=== PATIENT | female | born 1990 | race Caucasian/White ===

== ENCOUNTER 2020-12-25 18:11 | Inpatient (IN) | payer MEDICAID ==
[~2020-12-25] VITALS: Ht 170.2 cm; Wt 93.0 kg
[2020-12-25] MEDS ORDERED: diphenhydrAMINE HCL 50 MG/ML VIAL ONE (20:44)
[2020-12-25] MEDS ORDERED: LIDOCAINE VISCOUS 2% UD 15 ML UDC ONE (20:44)
[2020-12-25] MEDS ORDERED: FAMOTIDINE/PF INJ 20 MG/2 ML VIAL IV ONE ×2 (20:44→21:00)
[2020-12-25] MEDS ORDERED: MAG HYDROX/AL HYDROX/SIMETH 30 ML UDC ONE (20:44)
[2020-12-25] MEDS ORDERED: IV NS 0.9% 1,000 ML BAG IV ONE ×2 (21:00→22:30)
[2020-12-25] MEDS ORDERED: LIDOCAINE VISCOUS 2% UD 15 ML UDC MM ONE (21:00)
[2020-12-25] MEDS ORDERED: MAG HYDROX/AL HYDROX/SIMETH 30 ML UDC PO ONE (21:00)
[2020-12-25] MEDS ORDERED: diphenhydrAMINE HCL 50 MG/ML VIAL IV ONE (21:00)
--- NOTE | 2020-12-25 21:00 | NUR ---
epigastric pain w/ nausea x today. 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
--- NOTE | 2020-12-25 21:03 | NUR ---
URINE AND BLOOD SAMPLE WAS TURNED IN TO THE LAB
[2020-12-25 21:06] LABS: BASOPHILS % (AUTO) 0.3 % (0.0-2.0); HEMATOCRIT 39 % (33-45); HEMOGLOBIN 12.5 g/dL (11.5-14.8); LYMPHOCYTES # (AUTO) 0.6 /CMM (0.8-4.8); LYMPHOCYTES % (AUTO) 4.2 % (20.0-44.0); MEAN CORPUSCULAR HGB CONC 32 g/dl (31.0-36.0); MEAN CORPUSCULAR VOLUME 84 fL (82-100); MONOCYTES # (AUTO) 0.6 /CMM (0.1-1.30); MONOCYTES % (AUTO) 4.6 % (2.0-12.0); NEUTROPHILS # (AUTO) 12.2 /CMM (1.8-8.9); NEUTROPHILS % (AUTO) 90.9 % (43.0-81.0); PLATELET COUNT (AUTO) 309 /CMM (150-450); RED BLOOD CELL COUNT(AUTO) 4.63 MIL/uL (4.0-5.2); WHITE BLOOD COUNT (AUTO) 13.4 K/uL (4.3-11.0)
[2020-12-25 21:43] LABS: CALCIUM, SERUM 9.6 mg/dL (8.5-10.1); CREATININE 0.8 mg/dL (0.6-1.3); POTASSIUM 3.6 mmol/L (3.5-5.1)
[2020-12-25 21:49] LABS: ALBUMIN 3.5 g/dL (3.4-5.0); BILIRUBIN,DIRECT 3.2 mg/dL (0.0-0.2); BILIRUBIN,TOTAL 4.1 mg/dL (0.2-1.0); TOTAL PROTEIN, SERUM 7.9 g/dL (6.4-8.2)
[2020-12-25 22:07] LABS: BILIRUBIN,URINE LARGE (NEGATIVE); COLOR,URINE DARK YELLOW (YELLOW); LEUKOCYTE ESTERASE ,URINE Negative (NEGATIVE); NITRITE, URINE Negative (NEGATIVE); PH,URINE 5.5 (5.0-8.0); PROTEIN,URINE 30 mg/dl (NEGATIVE); UGLUCOSE Negative (NEGATIVE); UROBILINOGEN,URINE 0.2 EU/dL (0.2)
[2020-12-25 22:09] LABS: BACTERIA,URINE Few /HPF (None Seen); SQUAMOUS EPITHELIAL CELL,UR Few /HPF (None Seen); WBC,URINE 0-2 /HPF (0-3)
--- NOTE | 2020-12-25 22:52 | NUR ---
CALLED FOR COVID SWAB
[2020-12-25 22:53] LABS: ALCOHOL, BLOOD < 3 mg/dL (0-0)
[2020-12-25 22:58] LABS: CHOLESTEROL 227 mg/dL (<200); HDL CHOLESTEROL 57 mg/dL (40-60); LDL 127 mg/dL (0-99); TRIGLYCERIDES 70 mg/dL (30-150)
[2020-12-25] MEDS ORDERED: ONDANSETRON HCL/PF 4 MG/2 ML VIAL IVP ONE (23:00)
[2020-12-25] MEDS ORDERED: MORPHINE SULFATE INJ 2 MG/ML DISP.SYRIN IV ONE (23:00)
--- NOTE | 2020-12-25 23:53 | NUR ---
LAB CALLED REGARDING NEGATIVE COVID RESULT.
[2020-12-26] MEDS ORDERED: ONDANSETRON HCL/PF 4 MG/2 ML VIAL IVP PRN
[2020-12-26] MEDS ORDERED: MAGNESIUM HYDROXIDE 30 ML UDC PO PRN
[2020-12-26] MEDS ORDERED: MAG HYDROX/AL HYDROX/SIMETH 30 ML UDC PO PRN
[2020-12-26] MEDS ORDERED: Z GUARD REMEDY 2 OZ OINT TP PRN
[2020-12-26] MEDS ORDERED: ACETAMINOPHEN 325 MG TABLET PO PRN
[2020-12-26] MEDS ORDERED: ZOLPIDEM TARTRATE 5 MG TABLET PO PRN
--- NOTE | 2020-12-26 00:21 | NUR ---
Patient is resting comfortably in bed with eyes closed. Easily aroused. VSS
[2020-12-26] MEDS ORDERED: MORPHINE SULFATE INJ 4 MG/ML DISP.SYRIN ONE (01:05)
[2020-12-26] MEDS: IV NS 0.9% 1,000 ML IV SCH ×3 (01:06→19:49)
[2020-12-26 04:43] LABS: BASOPHILS % (AUTO) 0.3 % (0.0-2.0); EOSINOPHILS % (AUTO) 0.1 % (0.0-6.0); HEMATOCRIT 37 % (33-45); LYMPHOCYTES # (AUTO) 0.7 /CMM (0.8-4.8); LYMPHOCYTES % (AUTO) 7.1 % (20.0-44.0); MEAN CORPUSCULAR HGB CONC 33 g/dl (31.0-36.0); MEAN CORPUSCULAR VOLUME 84 fL (82-100); MONOCYTES # (AUTO) 0.7 /CMM (0.1-1.30); MONOCYTES % (AUTO) 6.9 % (2.0-12.0); NEUTROPHILS # (AUTO) 8.8 /CMM (1.8-8.9); NEUTROPHILS % (AUTO) 85.6 % (43.0-81.0); PLATELET COUNT (AUTO) 267 /CMM (150-450); RED BLOOD CELL COUNT(AUTO) 4.37 MIL/uL (4.0-5.2); WHITE BLOOD COUNT (AUTO) 10.3 K/uL (4.3-11.0)
[2020-12-26 05:03] LABS: CALCIUM, SERUM 8.9 mg/dL (8.5-10.1); CREATININE 0.8 mg/dL (0.6-1.3); MAGNESIUM 1.7 mg/dL (1.8-2.4); PHOSPHORUS 3.4 mg/dL (2.5-4.9); POTASSIUM 3.6 mmol/L (3.5-5.1)
[2020-12-26] MEDS ORDERED: FAMO40TA7 PO (07:02)
--- NOTE | 2020-12-26 07:30 | NUR ---
RECEIVED REPORT FROM ROBERTO WINTER FOR [facility]O. PT IS AAOX4, NOT IN RESPIRATORY DISTRESS, V/S STABLE, KEPT RESTED AND COMFORTABLE. WILL CONTINUE TO MONITOR.
[2020-12-26 08:00] VITALS: BP 134/79
--- NOTE | 2020-12-26 08:00 | NUR ---
REPORT GIVEN TO ROBERTO HOWE FOR [facility]O.
[2020-12-26] MEDS: Magnesium 1GM/D5W 100ML PREMIX 100 ML IV SCH ×2 (10:31→11:40)
--- NOTE | 2020-12-26 11:28 | NUR ---
MS RN ADMITTING NOTES PT ADMITTED FROM [facility] AT 0830 VIA GURNEY ACCOMPANIED BY Allie RN AXLE. PT IS A/O X4. ABLE TO MAKE NEEDS KNOWN, VERBALIZED THAT HER ABDOMINAL PAIN IS TOLERABLE AT THIS TIME. PT WITH DX OF GALLSTONE PANCREATITIS. PT ORIENTED TO STAFF AND ROOM. V/S TAKEN AND RECORDED. ON ROOM AIR, TOLERATING WELL WITH NO SOB NOTED. PT IS AMBULATORY WITH STEADY GAIT. IV ACCESS NOTED ON LAC g#18 WITH IVF OF NS @ 100 ML/HR INFUSING, NO S/S OF INFILTRATIONS NOTED. SAFETY MEASURES INITIATED: BED PLACED IN LOWEST LOCKED POSITION WITH SR UP X2. CALL LIGHT W/I EASY REACH OF PT. WILL CONTINUE TO MONITOR PT ACCORDINGLY.
[2020-12-26 16:00] VITALS: BP 136/88
[2020-12-26] MEDS: MORPHINE SULFATE INJ 2 MG/ML DISP.SYRIN IV PRN (18:49)
--- NOTE | 2020-12-26 18:53 | NUR ---
RN NOTES PT C/O SHARP UPPER ABDOMINAL PAIN, 8/10 SCALE. PRN MORPHINE 2MG/ML IVP ADMINISTERED AT 1849. WILL CONTINUE TO MONITOR AND REASSESS PT.
--- NOTE | 2020-12-26 18:59 | NUR ---
MS RN CLOSING NOTES PT AWAKE AND RESTING IN BED AT MODERATE HIGH BACKREST POSITION AT THIS TIME. A/O X4. ABLE TO MAKE NEEDS KNOWN. ON ROOM AIR, TOLERATING WELL WITH NO SOB NOTED. PT FOR LAP CHOLECYSTECTOMY POSSIBLE OPEN TOMORROW BY DR JULIO, NPO MAINTAINED, ALL CONSENTS SIGNED. IV ON LAC g#18 INTACT AND PATENT, IVF OF NS @ 100 ML/HR INFUSING WELL, NO S/S OF INFILTRATIONS NOTED. ALL NEEDS AND CARE ATTENDED WELL. SAFETY MEASURES IN PLACE: BED IN LOWEST LOCKED POSITION WITH SR UP X2. CALL LIGHT W/I EASY REACH OF PT. WILL ENDORSE TO STRIPPING SHOVEL OILER NURSE FOR BAO.
[2020-12-26 19:15] LABS: CALCIUM, SERUM 9.2 mg/dL (8.5-10.1); CREATININE 0.7 mg/dL (0.6-1.3); POTASSIUM 3.2 mmol/L (3.5-5.1)
[2020-12-26 19:21] LABS: ALBUMIN 2.9 g/dL (3.4-5.0); BILIRUBIN,TOTAL 4.8 mg/dL (0.2-1.0); TOTAL PROTEIN, SERUM 6.9 g/dL (6.4-8.2)
--- NOTE | 2020-12-26 19:30 | NUR ---
RN opening notes Pt is resting in bed comfortably. Pt is alert and orientedX4. Respiration on room air. No SOB. No S/S of distress noted. IV site at LAC# 18 is clean, intact and infusing well NS@ 100 ml/hr. Pt status is NPO for procedure lap cholecystectomy tomorrow. Safety precautions is maintained. Bed at low position, brakes locked, side rails upX2 and call light is within reach. Will continue to monitor.
[2020-12-26 20:00] VITALS: BP 131/71
[2020-12-26 21:10] VITALS: BP 131/71
--- NOTE | 2020-12-26 21:40 | NUR ---
RN notes Informed and notified MD regarding Pt's potassium is 3.2 . MD ordered IV KCL 10 meq x 2 bags. Order carried out.
[2020-12-26] MEDS ORDERED: POTASSIUM CHLORIDE 10 MEQ/50 ML PREMIXED IVPB FOR PERIPHERAL LINE IV ONE (22:00)
[2020-12-26] MEDS: POTASSIUM CHLORIDE 10 MEQ/50 ML PREMIXED IVPB FOR PERIPHERAL LINE IV SCH ×2 (22:06→23:25)
[2020-12-27] MEDS: IV NS 0.9% 1,000 ML IV SCH ×2 (05:01→16:16)
[2020-12-27 06:29] LABS: BASOPHILS % (AUTO) 0.4 % (0.0-2.0); EOSINOPHILS % (AUTO) 1.4 % (0.0-6.0); HEMATOCRIT 36 % (33-45); HEMOGLOBIN 11.9 g/dL (11.5-14.8); LYMPHOCYTES # (AUTO) 0.7 /CMM (0.8-4.8); LYMPHOCYTES % (AUTO) 9.7 % (20.0-44.0); MEAN CORPUSCULAR HGB CONC 33 g/dl (31.0-36.0); MEAN CORPUSCULAR VOLUME 83 fL (82-100); MONOCYTES # (AUTO) 0.5 /CMM (0.1-1.30); MONOCYTES % (AUTO) 6.3 % (2.0-12.0); NEUTROPHILS # (AUTO) 6.3 /CMM (1.8-8.9); NEUTROPHILS % (AUTO) 82.2 % (43.0-81.0); PLATELET COUNT (AUTO) 238 /CMM (150-450); RED BLOOD CELL COUNT(AUTO) 4.33 MIL/uL (4.0-5.2); WHITE BLOOD COUNT (AUTO) 7.7 K/uL (4.3-11.0)
--- NOTE | 2020-12-27 06:46 | NUR ---
RN closing notes Pt is resting in bed comfortably. Pt is alert and orientedX4. Respiration is normal on room air. No SOB. No S/S of distress noted. IV site at LAC# 18 is clean, intact and infusing well NS@ 100 ml/hr. VS is stable. Afebrile. Pt status is NPO for procedure laparoscopic cholecystectomy today. Consent is done. Check list is done. Safety precautions is maintained. Bed at low position, brakes locked, side rails upX2 and call light is within reach. Will endorse to morning nurse for BAO.
[2020-12-27 07:15] LABS: ALBUMIN 2.7 g/dL (3.4-5.0); BILIRUBIN,TOTAL 3.4 mg/dL (0.2-1.0); CALCIUM, SERUM 9.3 mg/dL (8.5-10.1); CREATININE 0.6 mg/dL (0.6-1.3); PHOSPHORUS 2.6 mg/dL (2.5-4.9); POTASSIUM 3.7 mmol/L (3.5-5.1); TOTAL PROTEIN, SERUM 6.8 g/dL (6.4-8.2)
--- NOTE | 2020-12-27 07:20 | NUR ---
ms rn received on bed, awake,alert,oriented x4,not in any form of distress, respirations even and unlabored,no sob noted
[2020-12-27 08:00] VITALS: BP 132/63
--- NOTE | 2020-12-27 08:00 | NUR ---
ms rn on npo at this time, for surgery today.
[2020-12-27] MEDS ORDERED: ANESTHESIA TRAY IN PYXIS 1 EA TRAY MC ONE (08:34)
[2020-12-27] MEDS ORDERED: BUPIVACAINE MPF W/EPI 0.25% 30 ML VIAL ONE (08:36)
[2020-12-27] MEDS ORDERED: FENTANYL PF 100MCG/2ML AMPUL ONE ×2 (09:53→11:38)
[2020-12-27] MEDS ORDERED: MIDAZOLAM HCL 2 MG/2ML VIAL ONE (09:53)
[2020-12-27] MEDS ORDERED: SUCCINYLCHOLINE CHLORIDE 20 MG/ML VIAL ONE (09:54)
[2020-12-27] MEDS ORDERED: ROCURONIUM BROMIDE 50 MG/5 ML ONE (09:54)
--- NOTE | 2020-12-27 10:00 | NUR ---
MS RN PATIENT WENT DOWN FOR SURGERY,ALL NEEDS ATTENDED.
--- NOTE | 2020-12-27 14:00 | NUR ---
MS RN PATIENT CAME BACK FROM SURGERY, AWAKE,ALERT,ORIENTED, DENIES PAIN AT THIS TIME, SX SITE DRY W/ NO BLEEDING, LUIS F DRAIN INTACT, WILL MONITOR PATIENT.
[2020-12-27 16:00] VITALS: BP 123/69
[2020-12-27] MEDS: MORPHINE SULFATE INJ 2 MG/ML DISP.SYRIN IV PRN (16:09)
--- NOTE | 2020-12-27 19:00 | NUR ---
ms rn on bed, no distress noted.
--- NOTE | 2020-12-27 19:15 | NUR ---
MS RN OPENING NOTES: RECEIVED PATIENT IN BED AWAKE, ALERT AND ORIENTED X4. NO S/SX OF ACUTE DISTRESS NOTED. DENIES PAIN OR DISCOMFORT AT THIS TIME. IV ACCESS ON LAC #18 G PATENT, INTACT AND FLUSHES WELL. IV FLUIDS NS RUNNING @100ML/HR. SAFETY MEASURES IN PLACE. BED IN LOCKED AND IN LOWEST POSITION. SIDE RAILS UP X2. CALL LIGHT WITHIN REACH. WILL CONTINUE TO MONITOR FOR PATIENT'S SAFETY
[2020-12-27 20:00] VITALS: BP 123/77
[2020-12-28] MEDS: IV NS 0.9% 1,000 ML IV SCH ×2 (02:27→12:42)
--- NOTE | 2020-12-28 06:47 | NUR ---
MS RN CLOSING NOTES: PATIENT IN BED ASLEEP, AROUSES EASILY. NO S/SX OF ACUTE DISTRESS NOTED. DENIES PAIN OR DISCOMFORT AT THIS TIME. IV ACCESS ON LAC #18 G PATENT, INTACT AND FLUSHES WELL. IV FLUIDS NS RUNNING @100ML/HR. LUIS F DRAIN, EMPTIED AND RECORDED. SAFETY MEASURES IN PLACE. BED LOCKED AND IN LOWEST POSITION. SIDE RAILS UP X2. CALL LIGHT WITHIN REACH. WILL ENDORSE TO ONCOMING RN.
--- NOTE | 2020-12-28 07:00 | NUR ---
RN OPENING NOTES PT IS A/O X3 AND TRISTANIAN SPEAKING. PT IS ON RA WITH SOB OR RESPIRATORY DISTRESS PRESENT. PT VS STABLE. PT IS AMBULATORY WITH BATHROOM PRIVILEGES. RASH PRESENT ON UPPER BACK. LUIS F DRAIN PRESENT ON THE RIGHT ABDOMEN. DRAINS WITH LIGHT RED LIQUID. HL PRESENT IN LEFT AC AND FLUSHES WELL. SAFETY MEASURES IMPLEMENTED. SIDE RAILS RAISED. BED LOWERED. CALL LIGHT WITHIN REACH. WILL CONTINUE TO MONITOR.
[2020-12-28 07:03] LABS: BASOPHILS % (AUTO) 0.1 % (0.0-2.0); EOSINOPHILS % (AUTO) 0.4 % (0.0-6.0); HEMATOCRIT 35 % (33-45); HEMOGLOBIN 11.4 g/dL (11.5-14.8); LYMPHOCYTES # (AUTO) 1.1 /CMM (0.8-4.8); LYMPHOCYTES % (AUTO) 12.3 % (20.0-44.0); MEAN CORPUSCULAR HGB CONC 33 g/dl (31.0-36.0); MEAN CORPUSCULAR VOLUME 84 fL (82-100); MONOCYTES # (AUTO) 0.7 /CMM (0.1-1.30); MONOCYTES % (AUTO) 7.7 % (2.0-12.0); NEUTROPHILS # (AUTO) 7.1 /CMM (1.8-8.9); NEUTROPHILS % (AUTO) 79.5 % (43.0-81.0); PLATELET COUNT (AUTO) 275 /CMM (150-450); RED BLOOD CELL COUNT(AUTO) 4.12 MIL/uL (4.0-5.2)
[2020-12-28 07:12] LABS: ALBUMIN 2.5 g/dL (3.4-5.0); BILIRUBIN,TOTAL 1.9 mg/dL (0.2-1.0); CREATININE 0.7 mg/dL (0.6-1.3); MAGNESIUM 1.9 mg/dL (1.8-2.4); PHOSPHORUS 2.5 mg/dL (2.5-4.9); POTASSIUM 3.7 mmol/L (3.5-5.1); TOTAL PROTEIN, SERUM 6.6 g/dL (6.4-8.2)
[2020-12-28 08:00] VITALS: BP 117/50
[2020-12-28 16:00] VITALS: BP 106/67
[2020-12-28] MEDS: HYDROCODONE/APAP 5/325MG TABLET PO PRN (16:17)
--- NOTE | 2020-12-28 18:24 | NUR ---
RN CLOSING NOTE PT IS A/O X3 AND ICELANDIC SPEAKING. PT IS ON RA WITH NO SOB OR RESPIRATORY DISTRESS PRESENT. PT V/S STABLE. PT IS AMBULATORY WITH BATHROOM PRIVILEGES. RASH PRESENT ON UPPER BACK. LUIS F DRAIN PRESENT ON THE RIGHT ABDOMEN. DRAINED 50 ML OF LIGHT RED FLUID. HL PRESENT IN LEFT AC AND FLUSHES WELL. SAFETY MEASURES IMPLEMENTED. SIDE RAILS RAISED. BED LOWERED. CALL LIGHT WITHIN REACH. ROUTINE MEDS GIVEN. REPORT GIVEN TO NIGHT NURSE.
[2020-12-28 20:00] VITALS: BP 126/83
--- NOTE | 2020-12-29 04:04 | NUR ---
Received pt on heplock, IVF was not running. Resumed IVF on the beginning of the shift at 1930.
[2020-12-29] MEDS: HYDROCODONE/APAP 5/325MG TABLET PO PRN (05:55)
[2020-12-29 06:33] LABS: BASOPHILS # (AUTO) 0.1 /CMM (0.0-0.2); BASOPHILS % (AUTO) 0.6 % (0.0-2.0); EOSINOPHILS % (AUTO) 1.9 % (0.0-6.0); HEMATOCRIT 37 % (33-45); HEMOGLOBIN 12.2 g/dL (11.5-14.8); LYMPHOCYTES # (AUTO) 1.1 /CMM (0.8-4.8); LYMPHOCYTES % (AUTO) 13.4 % (20.0-44.0); MEAN CORPUSCULAR HGB CONC 33 g/dl (31.0-36.0); MEAN CORPUSCULAR VOLUME 84 fL (82-100); MONOCYTES # (AUTO) 0.5 /CMM (0.1-1.30); MONOCYTES % (AUTO) 5.8 % (2.0-12.0); NEUTROPHILS # (AUTO) 6.7 /CMM (1.8-8.9); NEUTROPHILS % (AUTO) 78.3 % (43.0-81.0); PLATELET COUNT (AUTO) 288 /CMM (150-450); RED BLOOD CELL COUNT(AUTO) 4.41 MIL/uL (4.0-5.2); WHITE BLOOD COUNT (AUTO) 8.5 K/uL (4.3-11.0)
--- NOTE | 2020-12-29 06:53 | NUR ---
MS RN CLOSING NOTES: PT SITTING IN BED,AWAKE,A/O X4. NO S/S OF DISTRESS NOTED. CALL LIGHT WITHIN REACH. BED IN LOWEST AND LOCKED POSITION. COMPLAINED OF PAIN ON THE BACK, NORCO 1 TAB PO GIVEN AT 0600. AMBULATORY. LUIS F DRAIN INTACT, 30ML SEROSANGUINOUS OUTPUT.
[2020-12-29 07:08] LABS: ALBUMIN 2.6 g/dL (3.4-5.0); BILIRUBIN,TOTAL 1.5 mg/dL (0.2-1.0); CALCIUM, SERUM 9.2 mg/dL (8.5-10.1); CREATININE 0.7 mg/dL (0.6-1.3); POTASSIUM 3.6 mmol/L (3.5-5.1); TOTAL PROTEIN, SERUM 6.9 g/dL (6.4-8.2)
--- NOTE | 2020-12-29 07:50 | NUR ---
MS/RN OPENING NOTES PT IS A/O X3 AND FIJIAN SPEAKING. PT IS ON RA WITH NO SOB OR RESPIRATORY DISTRESS PRESENT. PT VS STABLE. PT IS AMBULATORY. RASH PRESENT ON UPPER BACK. LUIS F DRAIN PRESENT ON THE RIGHT ABDOMEN. DRAINS WITH LIGHT RED LIQUID. HL PRESENT IN LEFT AC AND FLUSHES WELL. SAFETY MEASURES IMPLEMENTED. SIDE RAILS RAISED. BED LOWERED. CALL LIGHT WITHIN REACH. WILL CONTINUE TO MONITOR AND ENSURE SAFETY.
[2020-12-29 08:00] VITALS: BP 143/78
[2020-12-29] MEDS: IV NS 0.9% 1,000 ML IV SCH (09:22)
--- NOTE | 2020-12-29 13:29 | NUR ---
MS/RN DISCHARGED PATIENT WAS DISCHARGED TO HOME IN STABLE CONDITION. IV HEPLOCK AND NAME BAND REMOVED. ALL PERSONAL BELONGINGS ACCOUNTED FOR AND SIGNED OFF FOR IN THE BELONGINGS LIST. EDUCATED PATIENT ON NEW MEDICATION/ SIDE EFFECTS. EXIT CARE CARE SIGNED BY PATIENT. COPY MADE AND PLACED IN THE CHART. PROVIDED COPY OF EXIT CARE. INFORMED PATIENT TO FOLLOW UP WITH PCP IN 1 WEEK. PATIENT STATED UNDERSTANDING. ESCORTED TO MAIN LOBBY BY RN. SISTER OF PATIENT WAITING FOR TRANSPORT.
== END 2020-12-29 13:25 | disposition home or self-care (01) | DRG 263 ==
LOC: ER 20:11 → TRANSITION 12-26 00:39 → MED 12-26 05:20
PROC: 0FT44ZZ Resection of Gallbladder, Percutaneous Endoscopic Approach (ICD-10-PCS; principal; 2020-12-27)
DX: K85.10 Biliary acute pancreatitis without necrosis or infection (principal); K81.0 Acute cholecystitis; K21.9 Gastro-esophageal reflux disease without esophagitis; E66.9 Obesity, unspecified; Z68.32 Body mass index [BMI] 32.0-32.9, adult; Z20.822 Contact with and (suspected) exposure to COVID-19
CPT/HCPCS: 36415; 74181-TC; 76700-TC; 80048-TC; 80053-TC; 80061-TC; 80076-TC; 81001; 83690-TC; 83735-TC; 84100-TC; 84703-TC; 85025-TC; 85652-TC; 85730-TC; 86140-TC; 86850-TC; 87081-TC; 88304-TC; C9803; G0378; G0480; J0330; J1200; J2250; J2270; J2405; J2704; J3010; J3475; J3480; J3490; J7030; J7040